=== PATIENT | male | born 1950 | race Two or more races ===

== ENCOUNTER 2018-12-25 12:59 | Inpatient (IN) | payer OTHER, MEDICARE | END 2018-12-30 13:07 | disposition home or self-care (01) | LOC: DOU IN ICU 12-27 08:25 → WEST WING 12-27 17:27 → ER 12:59 → TELE-WESTW 12-27 17:30 → TELE 13:00 | PROC: 30233N1 Transfusion of Nonautologous Red Blood Cells into Peripheral Vein, Percutaneous Approach (ICD-10-PCS; principal; 2018-12-27 12:09) | PROC: 30233N1 Transfusion of Nonautologous Red Blood Cells into Peripheral Vein, Percutaneous Approach (ICD-10-PCS; 2018-12-27 12:09) | PROC: 0DBP8ZX Excision of Rectum, Via Natural or Artificial Opening Endoscopic, Diagnostic (ICD-10-PCS; 2018-12-27 12:09) | DX: K92.1 Melena (principal); K92.2 Gastrointestinal hemorrhage, unspecified; D64.9 Anemia, unspecified; I10 Essential (primary) hypertension; C61 Malignant neoplasm of prostate; I48.0 Paroxysmal atrial fibrillation; Z95.2 Presence of prosthetic heart valve; I35.0 Nonrheumatic aortic (valve) stenosis; E78.00 Pure hypercholesterolemia, unspecified; R00.8 Other abnormalities of heart beat; I48.91 Unspecified atrial fibrillation; K62.7 Radiation proctitis; Z85.46 Personal history of malignant neoplasm of prostate ==